=== PATIENT | male | born 1980 ===

== ENCOUNTER 2022-07-05 16:06 | Emergency (ER) | payer MEDICAID ==
[~2022-07-05] VITALS: Ht 185.4 cm; Wt 107.3 kg
[2022-07-05 16:40] VITALS: BP 118/72
== END 2022-07-05 22:00 | disposition left against medical advice (07) ==
LOC: ER 16:08
DX: S81.801A Unspecified open wound, right lower leg, initial encounter (principal); Z53.21 Procedure and treatment not carried out due to patient leaving prior to being seen by health care provider; X58.XXXA Exposure to other specified factors, initial encounter; Y93.9 Activity, unspecified; Y92.9 Unspecified place or not applicable; Y99.9 Unspecified external cause status